=== PATIENT | male | born 1985 | race Caucasian/White ===

== ENCOUNTER 2019-11-21 12:46 | Emergency (ER) | payer SELFPAY ==
[2019-11-21] MEDS ORDERED: Oseltamivir 75 MG CAP ONE (13:46)
[2019-11-21] MEDS ORDERED: Ibuprofen 800 MG TAB ONE (13:46)
== END 2019-11-21 13:53 | disposition home or self-care (01) ==
LOC: MADERS 12:46
DX: J10.1 Influenza due to other identified influenza virus with other respiratory manifestations (principal); R59.0 Localized enlarged lymph nodes; F17.210 Nicotine dependence, cigarettes, uncomplicated
CPT/HCPCS: 87804; 99283